=== PATIENT | male | born 1980 | race Caucasian/White ===

== ENCOUNTER → 2017-03-07 | Outpatient (CLI) | payer BC ==
[~2017-03-07] MED LIST: CARDIZEM CD360 MG PO; EPLERENONE50 MG PO; NORCO 7.5-3251 EACH PO; PRILOSEC OTC20 MG PO; PRINIVIL20 MG PO
[2017-03-07 09:05] LABS: BUN/CREATININE RATIO 12 (0-10)
== END ==
LOC: LAB 07:37
PROVIDERS: Emergency Medicine
DX: H60.392 Other infective otitis externa, left ear (principal); I10 Essential (primary) hypertension; E78.2 Mixed hyperlipidemia; K21.9 Gastro-esophageal reflux disease without esophagitis; M13.862 Other specified arthritis, left knee; M13.861 Other specified arthritis, right knee; S92.301S Fracture of unspecified metatarsal bone(s), right foot, sequela; W34.00XS Accidental discharge from unspecified firearms or gun, sequela; Z68.38 Body mass index [BMI] 38.0-38.9, adult; Z80.0 Family history of malignant neoplasm of digestive organs
CPT/HCPCS: 36415; 80053; 80061; 83704

== ENCOUNTER → 2021-03-17 | Outpatient (CLI) | payer OTHER ==
[2021-03-17 09:25] LABS: BUN/CREATININE RATIO 15 (0-10)
== END ==
LOC: LAB 07:44
PROVIDERS: Emergency Medicine
DX: I10 Essential (primary) hypertension (principal); E78.2 Mixed hyperlipidemia; E11.65 Type 2 diabetes mellitus with hyperglycemia
CPT/HCPCS: 36415; 80048; 80061; 83036

== ENCOUNTER 2021-11-18 20:03 | Emergency (ER) | payer SELFPAY ==
[2021-11-18 20:47] LABS: RED BLOOD COUNT 5.99 M/UL (4.20-5.50); WHITE BLOOD COUNT 18.2 K/UL (4.5-11.0)
[2021-11-18 21:06] LABS: BUN/CREATININE RATIO 15 (0-10)
[2021-11-19] MEDS ORDERED: CARAFATE 1 GM TA1 GM PO ×2 (01:01→01:13)
[2021-11-19] MEDS ORDERED: OMEPRAZOLE40 MG PO ×2 (01:01→01:13)
== END 2021-11-19 01:20 | disposition home or self-care (01) ==
LOC: ER1 20:03
PROVIDERS: Physician Assistant Medical
DX: K27.9 Peptic ulcer, site unspecified, unspecified as acute or chronic, without hemorrhage or perforation (principal); I10 Essential (primary) hypertension; Z88.0 Allergy status to penicillin; Z20.822 Contact with and (suspected) exposure to COVID-19
CPT/HCPCS: 71045; 80053; 81001; 82550; 82553; 83690; 83874; 84484; 85025; 93005; 96374; 96375; 99284; J2270; J2405; Q9967; U0002

== ENCOUNTER → 2021-11-29 | Outpatient (CLI) | payer BC ==
[~2021-11-29] MED LIST changes: +CARAFATE 1 GM TA1 GM PO; +OMEPRAZOLE40 MG PO
[2021-11-29 11:40] LABS: BUN/CREATININE RATIO 13 (0-10)
== END ==
LOC: LAB 07:02
PROVIDERS: Emergency Medicine
DX: I10 Essential (primary) hypertension (principal); E78.2 Mixed hyperlipidemia; M13.862 Other specified arthritis, left knee; M13.861 Other specified arthritis, right knee; E11.65 Type 2 diabetes mellitus with hyperglycemia
CPT/HCPCS: 36415; 80048; 83036; 84550

== ENCOUNTER → 2022-02-01 | Day surgery (SDC) | payer BC ==
[~2022-02-01] MED LIST changes: +AMARYL2 MG PO
== END | disposition home or self-care (01) ==
LOC: OR 07:19
DX: D12.2 Benign neoplasm of ascending colon (principal); D12.0 Benign neoplasm of cecum; D12.3 Benign neoplasm of transverse colon; K29.50 Unspecified chronic gastritis without bleeding; B96.81 Helicobacter pylori [H. pylori] as the cause of diseases classified elsewhere; K76.6 Portal hypertension; K31.89 Other diseases of stomach and duodenum; K64.1 Second degree hemorrhoids; K64.4 Residual hemorrhoidal skin tags; Z86.010 Personal history of colon polyps; Z80.0 Family history of malignant neoplasm of digestive organs; K27.9 Peptic ulcer, site unspecified, unspecified as acute or chronic, without hemorrhage or perforation; I10 Essential (primary) hypertension; E66.01 Morbid (severe) obesity due to excess calories; K21.9 Gastro-esophageal reflux disease without esophagitis; E11.9 Type 2 diabetes mellitus without complications; E78.5 Hyperlipidemia, unspecified; Z68.38 Body mass index [BMI] 38.0-38.9, adult; Z88.0 Allergy status to penicillin; Z79.899 Other long term (current) drug therapy
CPT/HCPCS: 82962; J2001; J2250; J2704; J7040

== ENCOUNTER → 2022-03-02 | Outpatient (CLI) | payer BC ==
[2022-03-02 08:17] LABS: HEMOGLOBIN 15.6 gm/dl (14.0-17.5); RED BLOOD COUNT 5.66 M/UL (4.20-5.50); WHITE BLOOD COUNT 9.7 K/UL (4.5-11.0)
== END ==
LOC: US 07:50
PROVIDERS: Internal Medicine Gastroenterology
DX: K76.6 Portal hypertension (principal); K76.0 Fatty (change of) liver, not elsewhere classified; R16.1 Splenomegaly, not elsewhere classified
CPT/HCPCS: 36415; 76705; 80076; 85027

== ENCOUNTER → 2022-03-29 | Outpatient (CLI) | payer BC ==
[2022-03-29 08:14] LABS: BUN/CREATININE RATIO 20 (0-10)
[2022-03-30 10:14] LABS: CREATININE, URINE 280.2 mg/dL (Not Estab.)
[2022-03-31 14:10] LABS: CHOLESTEROL, TOTAL 131 mg/dL (100-199); HDL SIZE 8.8 nm (>=9.2); HDL-C 28 mg/dL (>39); HDL-P (TOTAL) 19.9 umol/L (>=30.5); LARGE HDL-P 1.4 umol/L (>=4.8); LARGE VLDL-P 9.2 nmol/L (<=2.7); LDL SIZE 20.4 nm (>20.5); LDL SIZE 20.4 nm (>=20.8); LDL-C 68 mg/dL (0-99); LDL-P 1120 nmol/L (<1000); LP-IR SCORE 81 (<=45); SMALL LDL-P 568 nmol/L (<=527); TRIGLYCERIDES 207 mg/dL (0-149); VLDL SIZE 60.4 nm (<=46.6)
== END ==
LOC: LAB 07:13
PROVIDERS: Emergency Medicine
DX: E78.2 Mixed hyperlipidemia (principal); I10 Essential (primary) hypertension; E11.65 Type 2 diabetes mellitus with hyperglycemia; R10.816 Epigastric abdominal tenderness; K26.3 Acute duodenal ulcer without hemorrhage or perforation
CPT/HCPCS: 36415; 80053; 80061; 82043; 82570; 83036; 83704